=== PATIENT | male | born 1965 | race Caucasian/White ===

== ENCOUNTER 2018-11-29 02:38 | Emergency (ER) | payer SELFPAY ==
[2018-11-29] MEDS ORDERED: Ondansetron 4 MG/2 ML SDV ONE (02:51)
[2018-11-29] MEDS ORDERED: Ketorolac 30 MG/ML SDV ONE (02:51)
[2018-11-29] MEDS ORDERED: Metoclopramide Oral Soln 10 MG/10 ML UD Cup ONE (02:51)
[2018-11-29] MEDS ORDERED: Aluminum Hydroxide/Magnesium Hydroxide/Simethicone Susp 30 ML Cup ONE (02:51)
[2018-11-29] MEDS ORDERED: Lidocaine 2% Viscous Solution 15 ML Cup ONE (02:52)
[2018-11-29 07:04] LABS: CHLORIDE,CL 104 mmol/L (98-107); SODIUM,NA 139 mmol/L (136-148)
--- NOTE | 2018-11-30 11:06 | CR ---
EXAM DATE: 11/29/18 PATIENT'S AGE: 53 Patient: ARGELIA JAIMES Facility: [facility], [facility] : 1965 Study: XRay-Chest -11/29/2018 3:00:38 AM Ordering Physician: [email or web address] Final Report: INDICATION: Chest pain TECHNIQUE: Chest 1 view COMPARISON: None FINDINGS: Cardiovascular and mediastinum: Heart size and vasculature are normal in caliber and appearance. Lungs and pleural spaces: No pleural effusion or pneumothorax. Left basilar discoid atelectasis. Bones and soft tissues: No significant findings. IMPRESSION: Left basilar discoid atelectasis. Dictated by Jun Cline MD @ Nov 29 2018 3:43AM Signed by: Jun Cline MD @11/29/2018 3:44:10 AM (Electronic Signature) Report Signed by Proxy. RAHUL
== END 2018-11-29 05:10 | disposition home or self-care (01) ==
LOC: MW.ED 02:38
DX: R10.13 Epigastric pain (principal)
CPT/HCPCS: 36415; 71045; 71045-26; 80053; 83690; 84484; 85025; 85610; 93005; 96374; 96375; 99283; 99285-25

== ENCOUNTER 2019-05-29 00:25 | Emergency (ER) | payer BC, OTHER ==
[2019-05-29] MEDS ORDERED: Lidocaine 2% Viscous Solution 15 ML Cup PO ONE (00:38)
[2019-05-29] MEDS ORDERED: Benzocaine 20% Topical Spray UD MUCMEM ONE (00:38)
--- NOTE | 2019-05-29 00:40 | EDM.PDOC ---
ED HPI GENERAL MEDICAL PROBLEM - General Chief Complaint: General Stated Complaint: MOUTH PAIN Time Seen by Provider: 05/29/19 00:37 - History of Present Illness INITIAL COMMENTS - FREE TEXT/NARRATIVE: HISTORY AND PHYSICAL: History of present illness: Patient's 53-year-old white male presents with a concern of dentalgia he was seen earlier for same and put on Augmentin. He's been using Motrin and Tylenol with incomplete relief. No fever chills nausea vomiting or other complaints Review of systems: As per history of present illness and below otherwise all systems reviewed and negative. Past medical history: As per history of present illness and as reviewed below otherwise noncontributory. Surgical history: As per history of present illness and as reviewed below otherwise noncontributory. Social history: No reported history of drug or alcohol abuse. Family history: As per history of present illness and as reviewed below otherwise noncontributory. Physical exam: HEENT: Atraumatic, normocephalic, pupils reactive, negative for conjunctival pallor or scleral icterus, mucous membranes moist, throat clear, neck supple, nontender, trachea midline. Global and generally poor dentition widespread dental decay noted Lungs: Clear to auscultation, breath sounds equal bilaterally, chest nontender. Heart: S1S2, regular, negative for clicks, rubs, or JVD. Abdomen: Soft, nondistended, nontender. Negative for masses or hepatosplenomegaly. Negative for costovertebral tenderness. Pelvis: Stable nontender. Genitourinary: Deferred. Rectal: Deferred. Extremities: Atraumatic, negative for cords or calf pain. Neurovascular unremarkable. Neuro: Awake, alert, oriented. Cranial nerves II through XII unremarkable. Cerebellum unremarkable. Motor and sensory unremarkable throughout. Exam nonfocal. Diagnostics: None Therapeutics: Dental balls Impression: #1 dentalgia Definitive disposition and diagnosis as appropriate pending reevaluation and review of above. Tooth/Teeth Pain Score (Numeric/FACES): 10 - Related Data Allergies Allergy/AdvReac Type Severity Reaction Status Date / Time No Known Allergies Allergy Verified 05/29/19 00:35 Home Meds: Home Meds . [No Known Home Meds] 11/29/18 [History] ED ROS GENERAL - Review of Systems Review Of Systems: ROS reveals no pertinent complaints other than HPI. ED EXAM, GENERAL - Physical Exam Exam: See Below (See dictation) Course - Vital Signs Last Recorded V/S: Last Vital Signs Temp 36.7 C 05/29/19 00:33 Pulse 95 05/29/19 00:33 Resp 18 05/29/19 00:33 BP 160/98 H 05/29/19 00:33 Pulse Ox 95 05/29/19 00:33 Departure - Departure Time of Disposition: 00:38 Disposition: Home, Self-Care 01 Condition: Good Clinical Impression: Dentalgia - Discharge Information Referrals: PCP,None [Primary Care Provider] - Additional Instructions: The following information is given to patients seen in the emergency department who are being discharged to home. This information is to outline your options for follow-up care. We provide all patients seen in our emergency department with a follow-up referral. The need for follow-up, as well as the timing and circumstances, are variable depending upon the specifics of your emergency department visit. If you don't have a primary care physician on staff, we will provide you with a referral. We always advise you to contact your personal physician following an emergency department visit to inform them of the circumstance of the visit and for follow-up with them and/or the need for any referrals to a consulting specialist. The emergency department will also refer you to a specialist when appropriate. This referral assures that you have the opportunity for followup care with a specialist. All of these measure are taken in an effort to provide you with optimal care, which includes your followup. Under all circumstances we always encourage you to contact your private physician who remains a resource for coordinating your care. When calling for followup care, please make the office aware that this follow-up is from your recent emergency room visit. If for any reason you are refused follow-up, please contact the [facility] emergency department at and asked to speak to the emergency department charge nurse. Continue Augmentin as prescribed dental balls as directed Motrin/Tylenol as directed follow-up dentist return as needed as discussed
== END 2019-05-29 00:57 | disposition home or self-care (01) ==
LOC: MW.ED 00:25
DX: K02.9 Dental caries, unspecified (principal)
CPT/HCPCS: 99282; A9270